=== PATIENT | male | born 1990 | race Hispanic/Latino ===

== ENCOUNTER 2020-04-16 08:47 | Day surgery (SDC) | payer OTHER ==
--- NOTE | 2020-04-05 05:59 | PCM.PREANE ---
Preanesthetic Assessment - Procedure Proposed Procedure: Left KVA with medial patellofemoral ligament reconstruction - Anesthesia/Transfusion/Family Hx Anesthesia History: Prior Anesthesia Without Reaction Family History of Anesthesia Reaction: No Transfusion History: No Prior Transfusion(s) Intubation History: Unknown - Review of Systems Pulmonary: No Symptoms ([facility]) - Physical Assessment NPO Status Date: 04/04/20 Vital Signs: HR: Resp: Temp: B/P Sat: Height: 1.85 m ASA Class: 2 - Allergies Allergies/Adverse Reactions: Allergies Allergy/AdvReac Type Severity Reaction Status Date / Time No Known Allergies Allergy Verified 04/04/20 11:46 - Anesthesia Plan Pre-Op Medication Ordered: None - Acknowledgements Anesthesia Type Planned: General Anesthesia (Potential Left adductor canal block under US guidance for post operative pain control.) Pt an Appropriate Candidate for the Planned Anesthesia: Yes Alternatives and Risks of Anesthesia Discussed w Pt/Guardian: Yes Pt/Guardian Understands and Agrees with Anesthesia Plan: Yes PreAnesthesia Questionnaire HEENT History: Reports: Impaired Vision, Other (See Below) Other HEENT History: wears contacts Cardiovascular History: Reports: None Respiratory History: Reports: None Gastrointestinal History: Reports: None Genitourinary History: Reports: None BATCHMAKER History: Reports: None Musculoskeletal History: Reports: None Neurological History: Reports: None Psychiatric History: Reports: None Endocrine/Metabolic History: Reports: None Hematologic History: Reports: None Immunologic History: Reports: None Oncologic (Cancer) History: Reports: None Dermatologic History: Reports: None - Infectious Disease History Infectious Disease History: Reports: None - Past Surgical History Head Surgeries/Procedures: Reports: None HEENT Surgical History: Reports: None Cardiovascular Surgical History: Reports: None Respiratory Surgical History: Reports: None GI Surgical History: Reports: None Female Surgical History: Reports: None Male Surgical History: Reports: None Endocrine Surgical History: Reports: None Neurological Surgical History: Reports: None Other Musculoskeletal Surgeries/Procedures:: left wrist fracture with surgical repair (plates and screws) Oncologic Surgical History: Reports: None Dermatological Surgical History: Reports: None - SUBSTANCE USE Tobacco Use Status *Q: Never Tobacco User Recreational Drug Use History: No - HOME MEDS Home Medications: Home Meds Acetaminophen/HYDROcodone [[place] 325-5 MG] 1 - 2 tab PO Q6H PRN #30 tablet 04/05/20 [Rx] Aspirin [Aspirin EC] 325 mg PO BID #84 tab 04/05/20 [Rx] Cyclobenzaprine [Flexeril] 10 mg PO BID PRN #20 tab 04/05/20 [Rx] - CURRENT (IN HOUSE) MEDS Current Meds: Current Medications Lactated Ringer's (Ringers, Lactated) 1,000 mls @ 125 mls/hr IV ASDIRECTED [facility] Stop: 04/05/20 23:00 Lidocaine/Sodium Bicarbonate (Buffered Lidocaine 1% In Ns 8.4%) 0.25 ml IDERM ONETIME PRN PRN Reason: Prior to IV Start Stop: 04/05/20 18:00 Sodium Chloride (Saline Flush) 10 ml FLUSH ASDIRECTED PRN PRN Reason: Keep Vein Open Stop: 04/05/20 18:00
[~2020-04-16 08:47] MED LIST: Albuterol 0.083% 2.5 MG/3 ML Neb Soln NEB PRN; Lactated Ringers 1,000 ML IV SCH; Lidocaine 1%/Sod Bicarbonate in NS 8.4% 1 ML Syringe IDERM PRN; Sodium Chloride 0.9% 10 ML Syringe FLUSH PRN
--- NOTE | 2020-04-16 09:30 | PCM.PREANE ---
Preanesthetic Assessment - Procedure Proposed Procedure: left knee video arthroscopy with medial patellofemoral ligament reconstruction - Anesthesia/Transfusion/Family Hx Anesthesia History: Prior Anesthesia Without Reaction Family History of Anesthesia Reaction: No Transfusion History: No Prior Transfusion(s) Intubation History: Unknown - Review of Systems General: No Symptoms Pulmonary: No Symptoms Cardiovascular: No Symptoms Gastrointestinal: No Symptoms Neurological: No Symptoms Other: Reports: None - Physical Assessment NPO Status Date: 04/15/20 NPO Status Time: 23:00 Vital Signs: Last Vital Signs Temp 97.5 F 04/16/20 08:55 Pulse 103 H 04/16/20 08:55 Resp 16 04/16/20 08:55 BP 161/97 H 04/16/20 08:55 Pulse Ox 97 04/16/20 08:55 Height: 6 ft 1 in Weight: 127.913 kg ASA Class: 2 Mental Status: Alert & Oriented x3 Airway Class: Mallampati = 2 Dentition: Reports: Normal Dentition Thyro-Mental Finger Breadths: 3 Mouth Opening Finger Breadths: 3 ROM/Head Extension: Full Lungs: Clear to Auscultation, Normal Respiratory Effort Cardiovascular: Regular Rate, Regular Rhythm - Allergies Allergies/Adverse Reactions: Allergies Allergy/AdvReac Type Severity Reaction Status Date / Time No Known Allergies Allergy Verified 04/13/20 13:12 - Blood Blood Available: No - Acknowledgements Anesthesia Type Planned: General Anesthesia, Regional Block Pt an Appropriate Candidate for the Planned Anesthesia: Yes Alternatives and Risks of Anesthesia Discussed w Pt/Guardian: Yes Pt/Guardian Understands and Agrees with Anesthesia Plan: Yes PreAnesthesia Questionnaire HEENT History: Reports: Impaired Vision, Other (See Below) Other HEENT History: wears contacts Cardiovascular History: Reports: None Respiratory History: Reports: None Gastrointestinal History: Reports: None Genitourinary History: Reports: None SENIOR DATA MODELER History: Reports: None Musculoskeletal History: Reports: None Neurological History: Reports: None Psychiatric History: Reports: None Endocrine/Metabolic History: Reports: Obesity/BMI 30+ Hematologic History: Reports: None Immunologic History: Reports: None Oncologic (Cancer) History: Reports: None Dermatologic History: Reports: None - Infectious Disease History Infectious Disease History: Reports: None - Past Surgical History Head Surgeries/Procedures: Reports: None HEENT Surgical History: Reports: None Cardiovascular Surgical History: Reports: None Respiratory Surgical History: Reports: None GI Surgical History: Reports: None Female Surgical History: Reports: None Male Surgical History: Reports: None Endocrine Surgical History: Reports: None Neurological Surgical History: Reports: None Other Musculoskeletal Surgeries/Procedures:: left wrist fracture with surgical repair (plates and screws) Oncologic Surgical History: Reports: None Dermatological Surgical History: Reports: None - SUBSTANCE USE Tobacco Use Status *Q: Never Tobacco User Tobacco Use Within Last Twelve Months: No Second Hand Smoke Exposure: No Days Per Week of Alcohol Use: 1 Number of Drinks Per Day: 3 Total Drinks Per Week: 3 Recreational Drug Use History: No - HOME MEDS Home Medications: Home Meds Acetaminophen/HYDROcodone [[place] 325-5 MG] 1 - 2 tab PO Q6H PRN #30 tablet 04/05/20 [Rx] Aspirin [Aspirin EC] 325 mg PO BID #84 tab 04/05/20 [Rx] Cyclobenzaprine [Flexeril] 10 mg PO BID PRN #20 tab 04/05/20 [Rx] - CURRENT (IN HOUSE) MEDS Current Meds: Current Medications Albuterol (Proventil Neb Soln) 2.5 mg NEB ONETIME PRN PRN Reason: bronchodilation Stop: 04/16/20 18:00 Lactated Ringer's (Ringers, Lactated) 1,000 mls @ 125 mls/hr IV ASDIRECTED [facility] Stop: 04/16/20 18:00 Last Admin: 04/16/20 09:14 Dose: 125 mls/hr Documented by: Lidocaine/Sodium Bicarbonate (Buffered Lidocaine 1% In Ns 8.4%) 0.25 ml IDERM ONETIME PRN PRN Reason: Prior to IV Start Stop: 04/16/20 18:00 Last Admin: 04/16/20 09:13 Dose: 0.25 ml Documented by: Sodium Chloride (Saline Flush) 10 ml FLUSH ASDIRECTED PRN PRN Reason: Keep Vein Open Stop: 04/16/20 18:00 Discontinued Medications Albuterol (Proventil Neb Soln) 2.5 mg NEB ONETIME PRN PRN Reason: bronchodilation Lactated Ringer's (Ringers, Lactated) 1,000 mls @ 125 mls/hr IV ASDIRECTED [facility] Stop: 04/05/20 23:00 Lidocaine/Sodium Bicarbonate (Buffered Lidocaine 1% In Ns 8.4%) 0.25 ml IDERM ONETIME PRN PRN Reason: Prior to IV Start Stop: 04/05/20 18:00 Sodium Chloride (Saline Flush) 10 ml FLUSH ASDIRECTED PRN PRN Reason: Keep Vein Open Stop: 04/05/20 18:00
[2020-04-16] MEDS ORDERED: Lactated Ringers 1,000 ML ONE (09:52)
[2020-04-16] MEDS ORDERED: Propofol 200 MG/20 ML SDV ONE (09:52)
[2020-04-16] MEDS ORDERED: Ketorolac 30 MG/ML SDV ONE (09:52)
[2020-04-16] MEDS ORDERED: Ondansetron 4 MG/2 ML SDV ONE (09:52)
[2020-04-16] MEDS ORDERED: fentaNYL 250 MCG/5 ML SDV ONE (09:53)
[2020-04-16] MEDS ORDERED: Midazolam 1 MG/ML 2 ML SDV ONE ×2 (09:53→10:40)
[2020-04-16] MEDS ORDERED: Ketamine 500 mg/10 ML MDV ONE (09:53)
[2020-04-16] MEDS ORDERED: ceFAZolin 1 GM Vial ONE (09:55)
[2020-04-16] MEDS ORDERED: Bupivacaine 0.25% 10 ML SDV ONE (09:59)
[2020-04-16] MEDS ORDERED: Lidocaine 2% with EPINEPHrine 1:200,000 20 ML SDV ONE (10:41)
[2020-04-16] MEDS ORDERED: Ropivacaine 0.5% 5 MG/ML 30 ML SDV ONE (10:42)
[2020-04-16] MEDS ORDERED: Dexmedetomidine 200 MCG/2 ML SDV ONE (10:43)
[2020-04-16] MEDS ORDERED: fentaNYL 100 MCG/2 ML SDV IVPUSH PRN (13:17)
[2020-04-16] MEDS ORDERED: Ondansetron 4 MG/2 ML SDV IVPUSH PRN (13:17)
--- NOTE | 2020-04-16 13:17 | PCM.POSTAN ---
POST ANESTHESIA ASSESSMENT - MENTAL STATUS Mental Status: Alert, Oriented - VITAL SIGNS Vital Signs: Last Vital Signs Temp 36.4 C 04/16/20 08:55 Pulse 103 H 04/16/20 08:55 Resp 16 04/16/20 08:55 BP 134/83 04/16/20 09:25 Pulse Ox 97 04/16/20 08:55 - RESPIRATORY Respiratory Status: Respiratory Rate WNL, Airway Patent, O2 Saturation Stable, Supplemental Oxygen - CARDIOVASCULAR CV Status: Pulse Rate WNL, Blood Pressure Stable - GASTROINTESTINAL GI Status: No Symptoms - PAIN Pain Score: 0 - POST OP HYDRATION Hydration Status: Adequate & Stable
--- NOTE | 2020-04-16 14:06 | PCM48HPAN ---
Post Anesthesia Note - EVALUATION WITHIN 48HRS OF ANESTHETIC Vital Signs in Normal Range: Yes Patient Participated in Evaluation: Yes Respiratory Function Stable: Yes Airway Patent: Yes Cardiovascular Function Stable: Yes Hydration Status Stable: Yes Pain Control Satisfactory: Yes Nausea and Vomiting Control Satisfactory: Yes Mental Status Recovered: Yes Vital Signs: Last Vital Signs Temp 36.7 C 04/16/20 13:35 Pulse 94 04/16/20 13:35 Resp 20 04/16/20 13:35 BP 127/64 04/16/20 13:35 Pulse Ox 96 04/16/20 13:35
--- NOTE | 2020-04-16 14:50 | CR ---
Left knee: Multiple fluoroscopic spot views were obtained of the left knee. Study was obtained utilizing C-arm device. Two probes are seen within the left patella on several of the images. No additional abnormality is seen on this study. Fluoroscopy time is given as 56.1 seconds. Impression: 1. Procedural study as noted above. Diagnostic code #2
--- NOTE | 2020-04-16 15:09 | PCM.PRNOTE ---
- Free Text/Narrative Note: Postoperative regional pain control requested by surgeon. Pre-op Dx: Left medial patellofemoral ligament tear. Post-op Rx: Left medial patellofemoral ligament reconstruction. Procedure: Left Femoral nerve block with U/S guidance and nerve stimulator Requesting surgeon: Dr. Bennett Maguire Risks and benefits discussed with the patient including Rt. leg weakness x 24 hrs., block failure, groin pain. Permit signed. Patient in preoperative room, stable , alert and awake. Time out performed. Oxygen 3L via NC. Right groin area was prepped with Chloraprep x 1 and allowed to dry. Midazolam IV 4 mg given. Local infiltration with 2 cc of 1% Lidocaine. The left femoral nerve and artery were identified under ultrasound prior to needle insertion. 4" Stimuplex needle #20 G was inserted under US guidance. Needle penetration through fascia basilio and fascia iliaca observed. Quadriceps femoris muscle response with patellar twitch obtained at 0.6 mA with nerve stimulation. Under direct visualization of needle tip the injection of 0.5% Ropivacaine with 1:200,000 epinephrine (20mls) , 6 ml of 2% Lidocaine PF with 1:200,000 epinephrine with added 8 mg of Dexamethasone and 40 mcg of Dexmedetomidine, total of 28 mls in divided doses maintaining negative aspiration was completed without problems. No local anesthetic toxicity was noted. Patient is awake, stable and tolerated the procedure well. Please see the attached U/S images Time: 11:04 - 11:15
--- NOTE | 2020-04-23 08:46 | PCM.OPNOTE ---
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
--- NOTE | 2020-04-26 11:00 | OR ---
DATE OF OPERATION: 04/16/2020 SURGEON: Bennett Smith MD OPERATION PERFORMED: Left knee medial patellofemoral ligament reconstruction with left knee video arthroscopy. PREOPERATIVE DIAGNOSIS: Left knee lateral patellar subluxation. 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 ANESTHESIA: General LMA with regional block. ANESTHESIA PROVIDER: Jesi Chauhan HEALTH MANAGER: Leana Atkinson PA-C and Sonia Hardy LPN. ESTIMATED BLOOD LOSS: 5 mL. COMPLICATIONS: None. CONDITION: Stable. DESCRIPTION OF PROCEDURE: The patient was identified in the preop holding area. Proper site was marked and identified by the surgeon. The patient was taken back to the operating theater, where after adequate anesthesia, the patient's left lower extremity had a nonsterile tourniquet applied and it was then sterilely prepped and draped in the usual sterile fashion. OR time-out was performed. The patient received 2 g IV Ancef. At this time, the left lower extremity was exsanguinated. Tourniquet was insufflated to 250 mmHg. A superior lateral portal was then created in the knee and the knee was insufflated with normal saline. At this time, the patient was noted to have significant lateral subluxation of the patella. He was noted to have grade 2 chondromalacia. An anterolateral portal was then created and the patient was noted to have grade 2 chondromalacia of the lateral compartment with fraying and fibrillation of the cartilage. The medial compartment was unchanged. ACL was intact in the notch. Otherwise, no abnormality was noted. At this time, the scope was removed. The graft was opened on the back table and was prepared by Leana Atkinson PA-C and Sonia Hardy LPN for an MPFL reconstruction. Incision was made vertically just to the medial side of the patella. This was taken down through the layers to the medial side of the patella until the bony surface was visualized. At this time, the 2 guide pins were placed under C-arm fluoroscopy in proper position, roughly a centimeter from the corner of the patella and then 2 cm from that, drill hole was then drilled. Once the ligament was prepared, the Arthrex anchors were placed with the ligament in the drill holes. Between layers 3 and 4 of the knee, a plane was made down to the femur. Incision was made on the femur. Guide pin was then placed in the proper position for positioning of the MPFL reconstruction tunnel on the femoral side using Blumensaat line in the posterior cortex. Guide pin was then placed all the way through the femur and out through the lateral side of the skin of the thigh. The graft was then passed and an interference screw was placed. Before the interference screw was placed, I tightened the MPFL reconstruction ligament until the patella was tracking centrally, and used the arthroscope to make sure that it was tracking centrally from the superolateral portal. The interference screw was then tightened. The patient's knee was brought through range of motion, it was tracking centrally. Negative J sign. Normal saline was irrigated through all wounds. Excess saline was drained from the knee. 0 Vicryl was used for closure of the deep layers of the knee near the patella. 2-0 Vicryl was used subcutaneously and nylon was used for closure of the skin. The patient had sterile soft dressing and a hinged knee brace placed in extension, and was sent to PACU in stable condition. MMODAL /[id number]
== END 2020-04-16 15:45 | disposition home or self-care (01) ==
LOC: JD.SDS 08:47
PROVIDERS: ATTEND Orthopaedic Surgery
DX: S83.012A Lateral subluxation of left patella, initial encounter (principal); G47.30 Sleep apnea, unspecified; M22.42 Chondromalacia patellae, left knee; E66.9 Obesity, unspecified; Z79.899 Other long term (current) drug therapy; Z98.890 Other specified postprocedural states; Z68.38 Body mass index [BMI] 38.0-38.9, adult; Z79.82 Long term (current) use of aspirin
CPT/HCPCS: 29999; 36415; 76000; 80053; C1713; C1762; J0690; J1885; J2250; J2405; J2704; J2795; J3010; J3490; J7120; 01400; 64447